=== PATIENT | male | born 1980 | race Caucasian/White ===

== ENCOUNTER → 2017-04-05 | Outpatient (CLI) | payer OTHER | END | disposition home or self-care (01) | LOC: C.PATHSPEC 14:39 | DX: C43.59 Malignant melanoma of other part of trunk (principal) ==

== ENCOUNTER 2017-10-23 14:08 | Emergency (ER) | payer OTHER ==
[~2017-10-23] VITALS: Ht 177.8 cm; Wt 82.0 kg
[2017-10-23 14:11] VITALS: BP 124/77; TEMP 37; Ht 177.8 cm; Wt 82.0 kg
--- NOTE | 2017-10-23 14:51 | EMERGENCY ROOM VISIT NOTE ---
History First contact with patient: 14:26 Chief Complaint: HEAD INJURY (MINOR) Stated Complaint: POSSIBLE CONCUSSION,DIZZINESS,LIGHTHEADED History of Present Illness The patient is a 37 year old male who presents to the Emergency Room via private vehicle accompanied by female with complaints of "possible concussion, dizziness, lightheadedness". The patient states that earlier today while at work, around 12:30 PM he was at recess, and notes that he was struck on the side of the right jaw with a football. He states that he felt dizzy, and lightheaded. There was no loss of consciousness. He states that since that time he has had difficulty concentrating. He is feeling sleepy. He denies any nausea, vomiting. Review of Systems A complete 6-point Review of Systems was discussed with the patient, with pertinent positives and negatives listed in the History of Present Illness. All remaining Review of Systems questions can be considered negative unless otherwise specified. Past Medical/Surgical History Arthritis Family History No pertinent Social History Smoking Status: Never Smoker Pt. is employed and lives locally Current/Historical Medications Scheduled Meloxicam (Meloxicam), 15 MG PO DAILY Physical Exam Vital Signs Date Time Temp Pulse Resp B/P (MAP) Pulse Ox O2 Delivery O2 Flow Rate FiO2 10/23/17 15:15 69 16 97 10/23/17 14:11 37.0 86 20 124/77 97 Room Air Physical Exam VITAL SIGNS - Vital signs and nursing notes were reviewed. Stable. Afebrile. GENERAL -37-year-old male appearing his stated age who is in no acute distress. Communicates well with provider and answers questions appropriately. SKIN - Without rashes. No particular meningeal rash. The skin overlying the right jaw is unremarkable. HEAD - Normocephalic, Atraumatic. No Silva's Sign or Raccoon's Eyes. EYES - PERRL with EOMI bilaterally. Without subconjunctival hemorrhage. Palpebral conjunctiva pink and moist with no injection. EARS - No deformities of external structures noted on gross examination bilaterally. No hemotympanum present. No tympanic perforation noted. Handle of malleus, umbo, cone of light, pars tensa/flaccid all easily visualized. NOSE - Midline and without cyanosis. No epistaxis or clear watery discharge noted. Septum midline without deviation. No septal hematoma noted. No overlying ecchymosis noted. MOUTH/OROPHARYNX - Without perioral cyanosis. EXTREMITIES - +5/5 strength noted in UE/LE bilaterally. NEUROLOGIC - Cranial nerves II through XII grossly intact. Sensory intact to light touch throughout. PSYCH - A&O, and cooperates fully with examiner. Pt is very pleasant and interacts well with examiner. Medical Decision & Procedures Medical Decision Patient was seen and evaluated as above. He presents to us today status post minor head injury. He was struck on the right jawline with a football. There was no loss of conscious. GCS is 15. After obtaining a thorough history and physical examination benefit versus risk of obtaining CT scan of the patient's head was discussed. Decision was made to refrain from scanning. It was felt that the risk from the radiation outweigh the benefit. He is to follow with his family doctor. Conservative management was discussed. He will be diagnosed the concussion. The patient was educated upon management, had questions answered prior to discharge, and was discharged home in good condition. In the evaluation and treatment of this patient, the following differential diagnoses were considered: Concussion, Contrecoup Injury, Brain Tumor, Depression, Encephalitis, Hypothyroidism, Meningitis, CVA, TIA, Migraine, Cluster Headache, Intracranial Abnormality, Intracranial Hemorrhage, Subdural Hematoma, Subarachnoid Hemorrhage, Hydrocephalus. Impression Primary Impression: Closed head injury Additional Impression: Concussion Departure Information Dispostion Home / Self-Care Condition GOOD Referrals Renaldo Tomlinson Jr,D.O. (PCP) Patient Instructions ED Head Injury Closed, My [facility] Additional Instructions You have been treated in the Emergency Department for a Closed Head Injury ( Concussion). For pain control, you can use the following [id number] medicines (if >12 yo): - Regular strength (325mg/tab) Tylenol (acetaminophen) 2 tabs every 4-6 hours as needed. Do not exceed 12 tablets in a 24 hour period. Avoid taking more than 3 grams (3000 mg) of Tylenol per day. This includes any other sources of acetaminophen you may take on a regular basis. You should relax in a quiet, dark place for the rest of the day. Avoid any possible triggers including: cigarette smoke, caffeine, nicotine, chocolate, wine, beer, loud noises or music, or bright lights. You should schedule a follow-up appointment in 2-3 days with your Primary Care Provider or established Neurologist for further evaluation and treatment of your Headache. Return to the Emergency Department if your current symptoms worsen despite treatment course outlined above, or if you develop any of the following symptoms : intractable pain despite aforementioned treatment course, visual disturbances , loss of vision, unilateral weakness or facial drooping, slurring of speech, loss of coordination, or loss of consciousness. Problem Qualifiers
[2017-10-23] MEDS ORDERED: MELO-83 PO (15:10)
[2017-10-23 15:15] VITALS: PULSE 69; O2SAT 97
== END 2017-10-23 15:16 | disposition home or self-care (01) ==
LOC: C.EDB 14:10 → C.EDD 15:16
DX: S06.0X0A Concussion without loss of consciousness, initial encounter (principal); W21.01XA Struck by football, initial encounter; Y92.89 Other specified places as the place of occurrence of the external cause; Y99.0 Civilian activity done for income or pay; M19.90 Unspecified osteoarthritis, unspecified site; Z79.899 Other long term (current) drug therapy

== ENCOUNTER 2018-01-02 21:05 | Emergency (ER) | payer OTHER ==
[~2018-01-02] VITALS: Ht 177.8 cm; Wt 82.3 kg
[~2018-01-02 21:05] MED LIST: MELO-83 PO
[2018-01-02 21:08] VITALS: TEMP 37.7; Ht 177.8 cm; Wt 82.3 kg
[2018-01-02] MEDS ORDERED: TRAMADOL HCL 50 MG TAB PO STA (21:39)
--- NOTE | 2018-01-02 22:36 | DIAGNOSTIC IMAGING REPORT ---
R WRIST W/NAVICULAR MIN 3 VIEWS HISTORY: 37 years-old Male wrist injury acute right wrist pain status post trauma COMPARISON: None available TECHNIQUE: 5 views of the right wrist and navicular FINDINGS: There is minimal cortical irregularity about the dorsal radial metaphysis seen best on the lateral projection. No acute displaced fracture, dislocation or significant degenerative changes. The navicular appears intact. No opaque foreign body. Mild dorsal wrist soft tissue swelling. IMPRESSION: 1. No acute displaced fracture. 2. Mild dorsal wrist soft tissue swelling with minimal cortical irregularity of the dorsal distal radial metaphysis suggesting physeal scar with acute nondisplaced fracture thought to be less likely. Correlate with point tenderness. The above report was generated using voice recognition software. It may contain grammatical, syntax or spelling errors. Electronically signed by: Earl Carvalho M.D. 01/02/2018 10:35 PM Dictated Date/Time: 01/02/2018 10:33 PM
--- NOTE | 2018-01-02 23:10 | DIAGNOSTIC IMAGING REPORT ---
R UPPER EXTREMITY WITHOUT HISTORY: 37 years-old Male right wrist injury, ? fx acute right wrist pain and concern for fracture COMPARISON: Right wrist radiographs of same day TECHNIQUE: Multiple axial CT images of the right upper extremity were obtained without the use of IV contrast. Coronal and sagittal reformatted images were obtained from the axial data set and were submitted for review. Additional 3-D rendering images were generated from a separate workstation. A dose lowering technique was used consistent with the principals of ALARA. FINDINGS: There is an acute nondisplaced mildly comminuted fracture of the distal radial metaphysis with mild cortical buckling noted dorsally accounting for the finding seen on comparison radiographs. No intra-articular extension of the fracture identified. Fracture extends into the listers tubercle. Ulna and carpal bones appear intact. Imaged metacarpals also appear intact. There are 2 corticated bone fragments measuring up to 3 mm adjacent to the third metacarpal base suggesting accessory ossicles with minimal subcortical cystic changes in the adjacent third metacarpal. There is mild ventral subcutaneous edema about the wrist without opaque foreign body. Imaged flexor and extensor tendons appear intact. IMPRESSION: 1. Acute nondisplaced mildly comminuted fracture of the distal radial metaphysis without intra-articular extension identified. 2. Circumferential subcutaneous edema about the wrist. 3. No carpal bone fracture identified. The above report was generated using voice recognition software. It may contain grammatical, syntax or spelling errors. Electronically signed by: Earl Carvalho M.D. 01/02/2018 11:08 PM Dictated Date/Time: 01/02/2018 11:03 PM
[2018-01-02] MEDS ORDERED: TRAMADOL HCL 50 MG HOME PACK PO ONE (23:30)
[2018-01-02 23:39] VITALS: BP 123/75; PULSE 74; O2SAT 96
[2018-01-02] MEDS ORDERED: TRAM-10 PO (23:42)
--- NOTE | 2018-01-03 00:31 | EMERGENCY ROOM VISIT NOTE ---
ED Visit Note First contact with patient: 21:38 CHIEF COMPLAINT: Wrist injury HISTORY OF PRESENT ILLNESS: This 37-year-old patient presents to the emergency department with friend complaining of pain in the right wrist after falling on it while at work. This is a work-related injury. 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 No prior fractures. The patient is able to move their wrist. The patient states the pain is throbbing and 6/10. No laceration, no weakness. No numbness or tingling. The patient denies any other injury. The patient is able to move their fingers and elbow without difficulty. The patient has not had a previous fracture to this wrist. The patient has taken meloxicam for the pain. REVIEW OF SYSTEMS: A 6 system review of systems was performed with positives and pertinent negatives in the HPI. ALLERGIES: None MEDICATIONS: Meloxicam PMH: Back pain SOCIAL HISTORY: No drug use PHYSICAL EXAM: Vital Signs: Reviewed Nurse's notes, vital signs stable. GENERAL : Pleasant male, in no acute distress, but appears to be in pain, well-developed , well-neurished. NEURO: Alert and oriented to person place and time. Normal sensation to light and sharp touch. MUSCULOSKELETAL: There is no deformity of the right wrist. There is tenderness and edema over distal radius. There is normal snuff box tenderness. Range of motion is intact but painful. There is no tenderness of the elbow, hand or fingers. Housekeeping Cleaner strength 4/5. Radial pulse 2+ . SKIN: Normal and intact. The hand is warm and well perfused with capillary refill less than 2 seconds. EMERGENCY DEPARTMENT COURSE: I examined the patient. An X-ray of the right wrist was reviewed by myself and radiology and showed R UPPER EXTREMITY WITHOUT HISTORY: 37 years-old Male right wrist injury, ? fx acute right wrist pain and concern for fracture COMPARISON: Right wrist radiographs of same day TECHNIQUE: Multiple axial CT images of the right upper extremity were obtained without the use of IV contrast. Coronal and sagittal reformatted images were obtained from the axial data set and were submitted for review. Additional 3-D rendering images were generated from a separate workstation. A dose lowering technique was used consistent with the principals of SINTIA. FINDINGS: There is an acute nondisplaced mildly comminuted fracture of the distal radial metaphysis with mild cortical buckling noted dorsally accounting for the finding seen on comparison radiographs. No intra-articular extension of the fracture identified. Fracture extends into the listers tubercle. Ulna and carpal bones appear intact. Imaged metacarpals also appear intact. There are 2 corticated bone fragments measuring up to 3 mm adjacent to the third metacarpal base suggesting accessory ossicles with minimal subcortical cystic changes in the adjacent third metacarpal. There is mild ventral subcutaneous edema about the wrist without opaque foreign body. Imaged flexor and extensor tendons appear intact. IMPRESSION: 1. Acute nondisplaced mildly comminuted fracture of the distal radial metaphysis without intra-articular extension identified. 2. Circumferential subcutaneous edema about the wrist. 3. No carpal bone fracture identified. The above report was generated using voice recognition software. It may contain grammatical, syntax or spelling errors. R WRIST W/NAVICULAR MIN 3 VIEWS HISTORY: 37 years-old Male wrist injury acute right wrist pain status post trauma COMPARISON: None available TECHNIQUE: 5 views of the right wrist and navicular FINDINGS: There is minimal cortical irregularity about the dorsal radial metaphysis seen best on the lateral projection. No acute displaced fracture, dislocation or significant degenerative changes. The navicular appears intact. No opaque foreign body. Mild dorsal wrist soft tissue swelling. IMPRESSION: 1. No acute displaced fracture. 2. Mild dorsal wrist soft tissue swelling with minimal cortical irregularity of the dorsal distal radial metaphysis suggesting physeal scar with acute nondisplaced fracture thought to be less likely. Correlate with point tenderness. The above report was generated using voice recognition software. It may contain grammatical, syntax or spelling errors. Electronically signed by: Earl Carvalho M.D.. Patient was exquisitely tender over his distal radius and with the abnormal x- ray I did opt to order CT for further evaluation. Patient did have a comminuted nondisplaced fracture of the distal radius. A Ortho-Glass volar splint was placed under my direction and the position was satisfactory. Neurovascular status rechecked and intact. Patient was advised to follow-up with orthopedics for definitive care for his wrist fracture. He was advised to make sure this is approved through his work as this is a work-related injury. Patient was neurovascularly neurologically intact. No deficits. No other injuries are noted. He was advised to take medicines as directed. He is advised not to take Mobic with his Motrin. He was advised to return to the ER immediately for severe pain, numbness, tingling, worsening signs or symptoms or as needed. The patient was discharged home in good condition. Differential diagnosis includes sprain, strain, fracture, dislocation and other etiologies were considered. DIAGNOSIS: #1 right wrist fracture #2 work-related injury DISCHARGE INSTRUCTIONS & TREATMENT: As below Current/Historical Medications Scheduled Meloxicam (Meloxicam), 15 MG PO DAILY Scheduled PRN Tramadol (Ultram), 1-2 TAB PO Q4H PRN for Pain Allergies Coded Allergies: No Known Allergies (Unverified , OTHER, 06/12/09) Vital Signs Date Time Temp Pulse Resp B/P (MAP) Pulse Ox O2 Delivery O2 Flow Rate FiO2 01/02/18 23:39 74 18 123/75 96 Room Air 01/02/18 22:03 77 16 117/61 97 Room Air 01/02/18 21:08 37.7 91 18 121/74 98 Room Air Medications Administered Medications (Trade) Dose Ordered Sig/Cinthia Route Start Time Stop Time Status Last Admin Dose Admin Tramadol HCl (Ultram Tab) 50 mg ONE STAT PO 01/02/18 21:39 01/02/18 21:40 DC 01/02/18 22:01 50 MG Departure Information Impression Primary Impression: Work related injury Additional Impression: Right wrist fracture Dispostion Home / Self-Care Condition GOOD Prescriptions Tramadol (Ultram) 50 Mg Tab 1-2 TAB PO Q4H Y for Pain, #20 TAB For Initial Treatment Prov: Gina Valle ., WILIAN 01/02/18 Referrals Renaldo Tomlinson Jr,D.O. (PCP) Dario Ramirez M.D. Forms WORK / SCHOOL INSTRUCTIONS, HOME CARE DOCUMENTATION FORM, Days off work : 2 Work Instructions, IMPORTANT VISIT INFORMATION Patient Instructions My [facility], ED Fx Wrist General Additional Instructions As this is a work-related injury, make sure the orthopedic doctor is approved through your work for follow-up for your wrist fracture. Ask your mitigation supervisor. Ulram 50mg: Take 1-2 pills every four hours for breakthrough pain. Stop your meloxicam while you are taking the Motrin for the next week. Ibuprofen(Motrin, Advil) may be used for fever or pain. Use 600mg every six hours as needed. Take with food. Avoid using more than 2400mg in a 24 hour period. Do not use 2400mg per day for more than three consecutive days without physician direction. Prolonged inappropriate use can lead to stomach upset or ulcers. This medication can be taken if you need to drive, work, or perform activities which may be dangerous when taking narcotic pain medication. (AND/OR) Acetaminophen(Tylenol) may be used for fever or pain. Use 1000mg every six hours as needed. Avoid using more than 3000mg in a 24 hour period. This medication can be taken if you need to drive, work, or perform activities which may be dangerous when taking narcotic pain medication. Ice compresses for 20 minutes at a time four times daily for 2-3 days. Rest and elevate your injury. Do not get the splint wet. If your splint feels excessively tight, you have worsening pain, develop numbness or tingling, or your digits appear blue, loosen the joann wrap. Then reapply the joann wrap gently without removing the splint. If your symptoms are not quickly relieved return to the ER for re- evaluation. Continue current medications. Return to the ER immediately for any numbness, tingling, severe pain, extreme swelling in the extremity or as needed. Call Orthopedics tomorrow to arrange follow up for your injury. Problem Qualifiers
== END 2018-01-02 23:45 | disposition home or self-care (01) ==
LOC: C.EDB 21:05 → C.EDD 23:45
DX: S52.591A Other fractures of lower end of right radius, initial encounter for closed fracture (principal); W01.198A Fall on same level from slipping, tripping and stumbling with subsequent striking against other object, initial encounter; Y93.6A Activity, physical games generally associated with school recess, summer camp and children; Y99.0 Civilian activity done for income or pay; Y92.838 Other recreation area as the place of occurrence of the external cause